=== PATIENT | male | born 2000 | race Caucasian/White ===

== ENCOUNTER 2018-10-20 09:48 | Emergency (ER) | payer BC ==
[~2018-10-20] VITALS: Ht 190.5 cm; Wt 100.0 kg
[2018-10-20 10:14] LABS: BASOPHILS # (AUTO) 0.04 x10^3/uL (0-0.3); BASOPHILS % (AUTO) 1 % (0-1); EOSINOPHILS # (AUTO) 0.14 x10^3/uL (0-0.8); EOSINOPHILS % (AUTO) 3 % (1-7); LYMPHOCYTES # (AUTO) 1.87 x10^3/uL (1-6.1); LYMPHOCYTES % (AUTO) 38 % (22-44); MD NO; MEAN CORPUSCULAR HEMOGLOBIN 31.9 pg (27.5-34.5); MEAN CORPUSCULAR HGB CONC 35.2 g/dL (33.2-36.2); MEAN CORPUSCULAR VOLUME 90.5 fL (81-97); MEAN PLATELET VOLUME 8.9 fL (7.4-10.4); MONOCYTES # (AUTO) 0.53 x10^3/uL (0-1.4); MONOCYTES % (AUTO) 11 % (2-9); NEUTROPHILS # (AUTO) 2.36 x10^3/uL (1.8-8.0); NEUTROPHILS % (AUTO) 48 % (42-75); PLATELET COUNT 235 x10^3/uL (130-400); RED BLOOD COUNT 5.16 x10^6/uL (4.38-5.82); RED CELL DISTRIBUTION WIDTH 12.8 % (9.4-14.8)
[2018-10-20] MEDS ORDERED: LEVE250T28 PO (10:17)
[2018-10-20] MEDS ORDERED: INSU100C5 SQ-INSULIN (10:17)
[2018-10-20 10:25] LABS: ALANINE AMINOTRANSFERASE 27 U/L (12-78); ALBUMIN 3.6 g/dL (3.4-5.0); ANION GAP 6 mmol/L (5-15); CALCIUM 8.7 mg/dL (8.5-10.1); CHLORIDE 107 mmol/L (98-107); CREATININE 1.05 mg/dL (0.7-1.3)
[2018-10-20 10:28] LABS: ALKALINE PHOSPHATASE 61 U/L (45-117); BILIRUBIN,TOTAL 0.5 mg/dL (0.2-1.0); TOTAL PROTEIN 7.2 g/dL (6.4-8.2)
[2018-10-20] MEDS ORDERED: LORazepam 1MG TABLET PO ONE (11:00)
[2018-10-20] MEDS ORDERED: LORazepam 0.5MG TABLET ONE (11:05)
[2018-10-20 11:07] VITALS: BP 107/51
--- NOTE | 2018-10-20 11:09 | NUR ---
CONTINUE TO MONITOR. MEDICATED WITH ATIVAN PER ORDERS
--- NOTE | 2018-10-20 12:27 | NUR ---
AMBULATED TO BATHROOM WITHOUT ASSITANCE. UPON RETURN TO ROOM, GOING OVER DISCHARGE PLAN. PT THEN AMBULATED TO DISCHARGE WINDOW WITHOUT ASSISTANCE
== END 2018-10-20 12:30 | disposition home or self-care (01) ==
LOC: ED 11:56
DX: G40.909 Epilepsy, unspecified, not intractable, without status epilepticus (principal)
CPT/HCPCS: 36415; 80053; 85025; 99283